=== PATIENT | female | born 1960 | race Caucasian/White ===

== ENCOUNTER 2018-12-09 08:57 | Outpatient (CLI) | payer BC ==
--- NOTE | 2018-12-10 09:22 | Mammography Report ---
Reason: SCREENING MAMMO Procedure Date: 12/09/2018 Accession Number: [id number] / [id number] Procedure: JOHN - Screening Mammo w/William CPT Code: FULL RESULT: EXAM: Screening Mammo w/William DATE: 12/09/2018 9:26 AM CLINICAL HISTORY: Screening encounter. History of early menses and nulliparity. TECHNIQUE: (B) - Bilateral CC and MLO views were obtained. COMPARISON: 06/30/2017 through 04/05/2009. PARENCHYMAL PATTERN: (A) - The breast(s) demonstrate(s) scattered fibroglandular densities. FINDINGS: There are no suspicious masses, calcifications, or areas of distortion. IMPRESSION: Negative examination. BI-RADS category 1. RECOMMENDATION: (ANNUAL) - Recommend routine annual screening mammography. BI-RADS CATEGORY: (1) - Negative. STANDARD QUALIFYING STATEMENTS: 1. This examination was not reviewed with the aid of Computer-Aided Detection (CAD). 2. A negative or benign imaging report should not preclude biopsy if clinically suspicious findings are present. 3. Dense breasts may obscure an underlying neoplasm. 4. This examination was reviewed with the aid of 3D breast imaging (tomosynthesis).
== END 2018-12-09 08:58 | disposition home or self-care (01) ==
LOC: DI 08:57
DX: Z12.31 Encounter for screening mammogram for malignant neoplasm of breast (principal)
CPT/HCPCS: 77063; 77067

== ENCOUNTER 2021-09-24 12:23 | Outpatient (CLI) | payer BC ==
--- NOTE | 2021-09-25 07:23 | Mammography Report ---
BILATERAL DIGITAL SCREENING MAMMOGRAM 3D/2D: 09/24/2021 CLINICAL: Routine screening. Comparison is made to exams dated: 12/09/2018 mammogram, 06/30/2017 mammogram, and 12/06/2014 mammogra m - [facility]. There are scattered fibroglandular elements in both breasts. No significant masses, calcifications, or other findings are seen in either breast. There has been no significant interval change. IMPRESSION: NEGATIVE There is no mammographic evidence of malignancy. A 1 year screening mammogram is recommended. This exam was interpreted at Station ID: [id number]. NOTE: For mammograms, a report in lay terms will be sent to the patient. Approximately 15% of breast malignancies will not be visualized mammographically. In the management of a palpable breast mass, a negative mammogram must not discourage biopsy of a clinically suspicious lesion. Electronically Signed By: Bean Hassan M.D. aty/penrad:09/24/2021 16:20:40 ACR BI-RADS Category 1: Negative 3341F PARENCHYMAL PATTERN: (A) - The breast(s) demonstrate(s) scattered fibroglandular densities. BI-RADS CATEGORY: (1) - 1 RECOMMENDATION: (ANNUAL) - Recommend routine annual screening mammography. [id number] 1 year screening LATERALITY: (B)
== END 2021-09-24 12:24 | disposition home or self-care (01) ==
LOC: DI.S 12:23
PROVIDERS: ATTEND Obstetrics & Gynecology
DX: Z12.31 Encounter for screening mammogram for malignant neoplasm of breast (principal)

== ENCOUNTER 2021-09-24 12:27 | Outpatient (CLI) | payer BC ==
[2021-09-24 14:55] LABS: HCT - HEMATOCRIT 43.4 % (37.0-47.0); HGB - HEMOGLOBIN 13.9 g/dL (12.0-16.0); MEAN CORPUSCULAR HEMOGLOBIN 30.2 pg (27.0-31.0); MEAN CORPUSCULAR VOLUME 94.1 fL (81.0-99.0); MEAN PLATELET VOLUME 10.2 fL (7.9-10.8); RED BLOOD COUNT 4.61 10^6/uL (4.20-5.40); RED CELL DISTRIBUTION WIDTH 12.4 % (12.0-15.0); WHITE BLOOD COUNT 4.2 x10^3/uL (4.8-10.8)
[2021-09-24 15:37] LABS: ALBUMIN 4.2 g/dL (3.2-5.5); ALBUMIN/GLOBULIN RATIO 1.1 (1.0-2.2); ALKALINE PHOSPHATASE 53 IU/L (42-121); ALT ALANINE AMINOTRANSFERASE 19 IU/L (10-60); AST ASPARTATE AMINOTRANSFERASE 24 IU/L (10-42); BILIRUBIN,TOTAL 0.8 mg/dL (0.2-1.0); BUN - BLOOD UREA NITROGEN 13 mg/dL (6-20); CALCIUM 9.2 mg/dL (8.5-10.3); CARBON DIOXIDE - CO2 26 mmol/L (21-32); CHLORIDE 101 mmol/L (101-111); CHOL/HDL RATIO 3.1 (<4.4); CHOLESTEROL 210 mg/dL; CREATININE 0.7 mg/dL (0.4-1.0); GFR - MDRD 86 (>89); GLUCOSE 89 mg/dL (70-100); HDL CHOLESTEROL 68 mg/dL; LDL CHOLESTEROL,CALCULATED 132 mg/dL; LDL/HDL RATIO 1.9 (<4.4); SODIUM 139 mmol/L (135-145); TOTAL PROTEIN 7.9 g/dL (6.7-8.2); TRIGLYCERIDES 49 mg/dL; VLDL CHOLESTEROL 10 mg/dL
[2021-09-24 15:49] LABS: THYROID STIMULATING HORMONE 1.5 uIU/mL (0.34-5.60)
[2021-09-24 15:51] LABS: FREE T4 (FREE THYROXINE) 0.95 ng/dL (0.58-1.64)
[2021-09-24 16:37] LABS: ESTIMATED AVERAGE GLUCOSE 105 mg/dL (70-100); HEMOGLOBIN A1c% 5.3 % (4.27-6.07)
== END 2021-09-24 12:28 | disposition home or self-care (01) ==
LOC: LAB.S 12:27
PROVIDERS: ATTEND Obstetrics & Gynecology
DX: Z00.00 Encounter for general adult medical examination without abnormal findings (principal); Z13.1 Encounter for screening for diabetes mellitus; Z13.29 Encounter for screening for other suspected endocrine disorder; Z13.220 Encounter for screening for lipoid disorders; Z13.21 Encounter for screening for nutritional disorder
CPT/HCPCS: 36415; 80053; 80061; 82306; 83036; 83721; 84439; 84443; 85027

== ENCOUNTER 2022-11-07 09:10 | Outpatient (CLI) | payer BC ==
--- NOTE | 2022-11-08 10:35 | Mammography Report ---
BILATERAL DIGITAL SCREENING MAMMOGRAM 3D/2D: 11/07/2022 CLINICAL: Routine screening. Comparison is made to exams dated: 09/24/2021 mammogram, 12/09/2018 mammogram, and 06/30/2017 mammogram - [facility]. Both breasts are almost entirely fatty (category a/<25% glandular tissue). No significant masses, calcifications, or other findings are seen in either breast. There has been no significant interval change. IMPRESSION: NEGATIVE There is no mammographic evidence of malignancy. A 1 year screening mammogram is recommended. Based on the Tyrer Cuzick model (a risk assessment model) the patients lifetime risk is 5.7% and her 10 year risk is 2.3%. According to the ACR, ACS, and NCCN guidelines, an annual breast MRI exam nikolay g with mammogram is recommended if the patients lifetime risk is 20% or greater. This exam was interpreted at Station ID: [id number]. NOTE: For mammograms, a report in lay terms will be sent to the patient. Approximately 15% of breast malignancies will not be visualized mammographically. In the management of a palpable breast mass, a negative mammogram must not discourage biopsy of a clinically suspicious lesion. Electronically Signed By: Yara marrero/michael:11/07/2022 13:58:10 letter sent: No_Letter ACR BI-RADS Category 1: Negative 3341F PARENCHYMAL PATTERN: (F) - The breast(s) demonstrate(s) diffuse fatty replacement. BI-RADS CATEGORY: (1) - 1 Mammogram [id number] 1 year screening LATERALITY: (B)
== END 2022-11-07 09:11 | disposition home or self-care (01) ==
LOC: DI.S 09:10
PROVIDERS: ATTEND Nurse Practitioner
DX: Z12.31 Encounter for screening mammogram for malignant neoplasm of breast (principal)

== ENCOUNTER 2022-11-08 21:11 | Outpatient (CLI) | payer BC ==
--- NOTE | 2022-11-09 01:07 | Ultrasound Report ---
PROCEDURE: Pelvic w/Transvaginal INDICATIONS: HIST OVARIAN CYST TECHNIQUE: Real-time scanning was performed of the pelvic organs, with image documentation. Additional endovagi nal scanning was necessary due to incomplete visualization of the adnexal and endometrial structures by transabdominal scanning. COMPARISON: 09/04/2013 FINDINGS: Uterus: 6.7 x 4.4 x 6.3 cm. Endometrium is at the upper limit of normal measuring 5 mm. Multiple fibr oids, the largest on the left subserosal region with calcifications measuring 4.5 x 3.2 x 5.3 cm, pre viously 4.3 x 3.7 x 3.4 cm. The largest on the right lateral subserosal region measures 3.2 x 2.8 x 3 .2 cm, previously 4 x 3.6 x 3 cm. Ovaries: Complex cyst in the right ovary with incomplete septations measure 3.4 x 2.5 x 3.8 cm, previ ously 2.7 x 2.4 x 2.3 cm. Ovaries are otherwise not well seen. Other: No pathologic free fluid. IMPRESSION: Limited exam due to patient body habitus and increased bowel gas. Fibroid uterus. The left lateral calcified subserosal fibroid may be slightly increased, but difficul t to compare due to shadowing calcifications. Right ovarian O RADS 2 cyst measuring 3.4 x 3.8 x 2.5 cm is slightly enlarged compared to 2013 panda g. Consider another follow-up in 6-12 months. Reviewed by: Galdino Dumont MD on 11/09/2022 1:05 AM PDT Approved by: Galdino Dumont MD on 11/09/2022 1:05 AM PDT Station ID: [id number]
--- NOTE | 2022-11-09 01:12 | Ultrasound Report ---
PROCEDURE: Abdomen Limited INDICATIONS: HERNIA TECHNIQUE: Real-time focused scanning was performed of the abdomen, with image documentation. COMPARISONS: None. FINDINGS AND IMPRESSION: Periumbilical fat-containing nonreducible ventral abdominal hernia, with neck measuring 1.7-2.1 cm an d herniated portion measuring 5.4 x 2.9 cm. Reviewed by: Galdino Dumont MD on 11/09/2022 1:10 AM PDT Approved by: Galdino Dumont MD on 11/09/2022 1:10 AM PDT Station ID: [id number]
== END 2022-11-08 21:12 | disposition home or self-care (01) ==
LOC: DI 21:11
PROVIDERS: ATTEND Nurse Practitioner
DX: D25.2 Subserosal leiomyoma of uterus (principal); N83.201 Unspecified ovarian cyst, right side; K43.9 Ventral hernia without obstruction or gangrene

== ENCOUNTER 2022-11-11 11:59 | Outpatient (CLI) | payer BC | END 2022-11-11 12:00 | disposition home or self-care (01) | LOC: LAB.S 11:59 | PROVIDERS: ATTEND Nurse Practitioner | DX: Z87.42 Personal history of other diseases of the female genital tract (principal) | CPT/HCPCS: 36415; 86304 ==

== ENCOUNTER 2023-05-26 10:46 | Outpatient (CLI) | payer BC ==
[2023-05-26 14:57] LABS: BASOPHILS # (AUTO) 0.1 10^3/uL (0.0-0.1); BASOPHILS % (AUTO) 0.9 %; EOSINOPHILS # (AUTO) 0.3 10^3/uL (0.0-0.7); EOSINOPHILS % (AUTO) 4.9 %; HCT - HEMATOCRIT 45.2 % (37.0-47.0); HGB - HEMOGLOBIN 13.9 g/dL (12.0-16.0); LYMPHOCYTES # (AUTO) 1.6 10^3/uL (1.5-3.5); LYMPHOCYTES % (AUTO) 28.6 %; MEAN CORPUSCULAR HEMOGLOBIN 29.8 pg (27.0-31.0); MEAN CORPUSCULAR HGB CONC 30.8 g/dL (32.0-36.0); MEAN CORPUSCULAR VOLUME 96.8 fL (81.0-99.0); MEAN PLATELET VOLUME 10.2 fL (7.9-10.8); MONOCYTES # (AUTO) 0.6 10^3/uL (0.0-1.0); MONOCYTES % (AUTO) 11.1 %; NEUTROPHILS % (AUTO) 54.3 %; PLT - PLATELET COUNT 315 10^3/uL (130-450); RED BLOOD COUNT 4.67 10^6/uL (4.20-5.40); WHITE BLOOD COUNT 5.5 x10^3/uL (4.8-10.8)
[2023-05-26 15:23] LABS: HCG UR QUAL NEGATIVE
== END 2023-05-26 10:47 | disposition home or self-care (01) ==
LOC: LAB.S 10:46
PROVIDERS: ATTEND Obstetrics & Gynecology
DX: Z01.812 Encounter for preprocedural laboratory examination (principal); N83.209 Unspecified ovarian cyst, unspecified side
CPT/HCPCS: 36415; 81025; 85025

== ENCOUNTER 2023-06-05 06:10 | Day surgery (SDC) | payer BC ==
[2023-06-05] MEDS ORDERED: LACTATED RINGERS 1,000 ML IV ONE ×3 (06:47→09:16)
[2023-06-05] MEDS ORDERED: LIDOCAINE 1%-EPI 1:100000 20 ML MDV ONE (07:36)
[2023-06-05] MEDS ORDERED: SILVER NITRATE APPLICATOR TOP ONE (07:36)
[2023-06-05] MEDS ORDERED: MIDAZOLAM 2 MG/2 ML VIAL ONE (07:42)
[2023-06-05] MEDS ORDERED: LIDOCAINE-PF 2% 10 ML AMP SUBQ ONE (07:42)
[2023-06-05] MEDS ORDERED: fentaNYL 100 MCG/2 ML VIAL ONE (07:42)
[2023-06-05] MEDS ORDERED: PROPOFOL 200 MG/20 ML VIAL IVP ONE (07:42)
[2023-06-05] MEDS ORDERED: ROCURONIUM 50 MG/5 ML VIAL ONE (07:43)
[2023-06-05] MEDS ORDERED: DEXAMETHASONE 4 MG/ML VIAL ONE (07:43)
[2023-06-05] MEDS ORDERED: KETOROLAC 30 MG/ML VIAL ONE (07:43)
[2023-06-05] MEDS ORDERED: ONDANSETRON 4 MG/2 ML VIAL ONE (07:43)
[2023-06-05] MEDS ORDERED: NALOXONE 0.4 MG/ML VIAL IVP PRN (07:45)
[2023-06-05] MEDS ORDERED: ATROPINE ABBOJECT 1 MG/10 ML SYRINGE IVP PRN (07:45)
[2023-06-05] MEDS ORDERED: ONDANSETRON 4 MG/2 ML VIAL IVP PRN (07:45)
[2023-06-05] MEDS ORDERED: ePHEDrine 50 MG/ML VIAL IVP PRN (07:45)
[2023-06-05] MEDS ORDERED: MORPHINE 2 MG/ML CARPUJECT IVP PRN (07:45)
[2023-06-05] MEDS ORDERED: METOCLOPRAMIDE 10 MG/2 ML VIAL IVP PRN (07:45)
[2023-06-05] MEDS ORDERED: fentaNYL 100 MCG/2 ML VIAL IVP PRN (07:45)
[2023-06-05] MEDS ORDERED: HYDROmorphone 0.5 MG/0.5 ML SYRINGE IVP PRN (07:45)
--- NOTE | 2023-06-05 07:45 | ANESTHESIA ---
Pre-Anesthesia VS, & Labs - Diagnosis ovarian cyst - Procedure lap oophorectomy Vital Signs: Temp Pulse Resp BP Pulse Ox O2 Flow Rate 36.6 C 67 18 111/72 99 06/05/23 06:30 06/05/23 06:30 06/05/23 06:30 06/05/23 06:30 06/05/23 06:30 Height: 5 ft 6 in Weight (kg): 80.2 kg Body Mass Index: 28.5 BMI Classification: Overweight - NPO >8 hours - Is Patient ?: No Home Medications and Allergies Home Medications: Ambulatory Orders Fluticasone [Flonase] 1 sprays REGINA BID 05/15/23 Omeprazole 20 mg PO BID 05/15/23 Clobetasol 0.05% Oint [Temovate 0.05% Oint] 1 applic TOP ONCE PRN 01/29/23 Ibuprofen [Advil] 200 mg PO DAILY PRN 01/29/23 Progesterone, Micronized [Prometrium] 100 mg PO DAILY 01/29/23 estradioL [Estrace] 1 mg PO DAILY 01/29/23 Fluticasone [Flonase] 1 sprays REGINA BID 05/15/23 Omeprazole 20 mg PO BID 05/15/23 Allergies/Adverse Reactions: Allergies Allergy/AdvReac Type Severity Reaction Status Date / Time Milk Containing Products Allergy Intermediate psoriasis Verified 06/05/23 06:51 (Dairy) Anes History & Medical History - Anesthetic History Anesthesia Complications: reports: No previous complications Family history of Anesthesia Complications: Denies Family history of Malignant Hyperthermia: Denies - Medical History Cardiovascular: reports: None Pulmonary: reports: None Gastrointestinal: reports: GERD, Hemorrhoids Urinary: reports: None Neuro: reports: None Musculoskeletal: reports: None Endocrine/Autoimmune: reports: None Blood Disorders: reports: None Skin: reports: Psoriasis - Surgical History General: reports: Other Gynecologic: reports: Tubal ligation, Other Exam General: Alert, Oriented x3, Cooperative Dental: WNL Mouth Openin Fingerbreadth Neck Mobility: Normal Mallampati classification: II Thyromental Distance: 4-6 cm Respiratory: Lungs clear Cardiovascular: Regular rate Plan Anesthesia Type: General Consent for Procedure(s) Verified and Reviewed: Yes Code Status: Attempt Resuscitation ASA classification: 2-Mild systemic disease Is this case an emergency?: No
[2023-06-05] MEDS ORDERED: LACTATED RINGERS 1,000 ML IV SCH (08:00)
[2023-06-05] MEDS ORDERED: ACETAMINOPHEN 1,000 MG/100 ML 1,000 MG/100 ML BAG IV ONE (08:21)
[2023-06-05] MEDS ORDERED: LIDOCAINE 1%-EPI 1:100000 20 ML MDV SUBQ ONE ×2 (08:55)
[2023-06-05] MEDS ORDERED: SUGAMMADEX 200 MG/2 ML VIAL IVP ONE (09:14)
[2023-06-05] MEDS ORDERED: HYDROmorphone 0.5 MG/0.5 ML SYRINGE ONE (09:37)
--- NOTE | 2023-06-05 09:54 | OPERATIVE REPORT ---
Operative Report - General Procedure Date: 06/05/23 Planned Procedure: laparoscopic BSO Pre-Op Diagnosis: persistent cysts in post menopausal woman Procedure Performed: laparoscopic BSO Post Op Diagnosis: same as above - Procedure Note Primary Surgeon: Anne Secondary Surgeon: John Anesthesia Provider: LIN Anesthesia Technique: General ET tube Pathology: bilateral tubes (s/p tubal) and ovaries, Right is tagged. R is larger. R with edema in broad ligament IV Fluids (mL): 1,000 Estimated Blood Loss (mL): 2 Urine Output (mL): 0 Indications: persistent ovarian cysts in post-menopausal woman Findings: fibroid uterus, retroverted. enlarged R uterus edema in broad ligament small L tube burn pardo c/w history of endometriosis small adhesion to abdominal wall - thin and lysed small white nodules on bowel - diverticuli ? Complications: none - Other Other Information/Narrative: OPERATIVE NOTE Pre-operative diagnosis: 1. persistent ovarian cysts in post menopausal woman Procedure: diagnostic laparoscopy, BSO Post-operative diagnosis: PERI Surgeon: Anne Sap Fico Business Analyst: John Anesthesia: General Findings: thin adhesion of omentum to anterior abdominal wall, lysed bilobed / fibroid uterus - retroverted normal appearing R ovary - though larger than L ovary small paratubal cysts on R side tubes s/p BTL edema in R broad ligament. Complications: None apparent EBL: minimal UOP: none - voided prior to entry into the OR Specimen: none Disposition: Stable, to PACU Procedure in detail: After risks benefits and alternatives, as well as indication for procedure and anticipated post-operative recovery course was discussed with the patient informed consent was obtained and patient was taken to the operating theater where general anesthesia was administered without difficulty. Pt was prepared and draped in normal sterile fashion. Placed supine. Prior to skin incision surgical time out was performed, all persons in the operating theater participated in time out and agreed. Dr. Cortez general surgeon was present for insertion of initial trocar - as he recently placed a mesh hernia repair in this woman. He created an 11mm incision in the R upper quadrant, and inserted veres - and then inserted the trocar without difficulty. We inserted the camera. Peritoneum insufflated. Pelvis inspected, no notable adhesions in the pelvis, minor adhesions as noted above. 5mm port placed in the right and left lower quadrants. Atraumatic grasper uti lized to reveal aforementioned findings. Ligasure used to remove tubes and ovaries in standard fashion, far from ureter. Pelvis inspected in detail, small site of bleeding on R cornua of uterus from retraction, hemostasis achieved with ligasure. Abdomen inspected, normal liver, normal gallbladder. Attempted removal of specimen with endocatch bag through 11mm port site -- and the bag broke, so the R ovary was pulled through incision with efe, and the L tube and ovary were removed through the 5mm trocar. Reinspected pelvis, all hemostatic. Insufflation released from abdomen, ports removed. Skin closed with 4.0 monocryl. Skin hemostatic, local anesthesia placed around incisions incisions dressed with bandaids x3. Pt tolerated procedure well. All counts correct. Pt to PACU in stable condition. Dr. Lopez care, expertise, retraction, and assistance was needed throughout the case for the safety and wellbeing of the patient. Dr. Cortez expertise was appreciated for the initial insertion of trocar to avoid involvement of mesh / complication from prior surgery, in order to achieve maxiumum safety for the patient.
[2023-06-05] MEDS ORDERED: MORPHINE 10 MG/ML VIAL IVP ONE (10:10)
[2023-06-05 10:52] VITALS: BP 109/63; O2SAT 99
--- NOTE | 2023-06-05 16:28 | ANESTHESIA POST OP EVALUATION ---
Anesthesia Post Eval - Post Anesthesia Eval Vitals: Last Vital Signs Temp 36.8 C 06/05/23 10:45 Pulse 70 06/05/23 10:45 Resp 16 06/05/23 10:45 BP 109/63 06/05/23 10:45 Pulse Ox 99 06/05/23 10:45 O2 Flow Rate CV Function Including HR & BP: Stable Pain Control: Satisfactory Nausea & Vomiting: Negative Mental Status: Baseline Respiratory Status: Airway Patent Hydration Status: Satisfactory Anesthesia Complications: None
== END 2023-06-05 06:11 | disposition home or self-care (01) ==
LOC: SDS 06:10
PROVIDERS: ATTEND Obstetrics & Gynecology
PROC: 0UT78ZZ Resection of Bilateral Fallopian Tubes, Via Natural or Artificial Opening Endoscopic (ICD-10-PCS; 2023-06-05)
PROC: 0UT28ZZ Resection of Bilateral Ovaries, Via Natural or Artificial Opening Endoscopic (ICD-10-PCS; principal; 2023-06-05 07:30)
DX: N83.209 Unspecified ovarian cyst, unspecified side (principal); D25.9 Leiomyoma of uterus, unspecified; Z78.0 Asymptomatic menopausal state
CPT/HCPCS: 58661; J0131; J1170; J7120

== ENCOUNTER 2023-10-02 08:42 | Outpatient (CLI) | payer BC ==
[2023-10-02 16:13] LABS: ALBUMIN 3.7 g/dL (3.2-5.5); ALBUMIN/GLOBULIN RATIO 1.2 (1.0-2.2); BILIRUBIN,TOTAL 0.6 mg/dL (0.2-1.0); CALCIUM 9.2 mg/dL (8.5-10.3); CREATININE 0.6 mg/dL (0.6-1.3); POTASSIUM 3.9 mmol/L (3.5-4.5); TOTAL PROTEIN 6.8 g/dL (6.4-8.9)
== END 2023-10-02 08:43 | disposition home or self-care (01) ==
LOC: LAB.S 08:42
PROVIDERS: ATTEND Naturopath
DX: M79.10 Myalgia, unspecified site (principal); L40.0 Psoriasis vulgaris; N95.8 Other specified menopausal and perimenopausal disorders
CPT/HCPCS: 36415; 80053; 82670

== ENCOUNTER 2023-11-03 09:50 | Outpatient (CLI) | payer BC ==
[2023-11-03 14:50] LABS: ALBUMIN 4.1 g/dL (3.2-5.5); ALKALINE PHOSPHATASE 70 IU/L (42-121); ALT ALANINE AMINOTRANSFERASE 31 IU/L (10-60); AST ASPARTATE AMINOTRANSFERASE 30 IU/L (10-42); BILIRUBIN,DIRECT < 0.10 mg/dL (0.03-0.18); BILIRUBIN,TOTAL 0.6 mg/dL (0.2-1.0); TOTAL PROTEIN 6.7 g/dL (6.4-8.9)
== END 2023-11-03 09:51 | disposition home or self-care (01) ==
LOC: LAB.S 09:50
PROVIDERS: ATTEND Naturopath
DX: R10.10 Upper abdominal pain, unspecified (principal); R79.89 Other specified abnormal findings of blood chemistry
CPT/HCPCS: 36415; 80076; 81599

== ENCOUNTER 2023-11-21 09:54 | Outpatient (CLI) | payer BC | END 2023-11-21 09:55 | disposition home or self-care (01) | LOC: LAB.S 09:54 | PROVIDERS: ATTEND Naturopath | DX: R10.10 Upper abdominal pain, unspecified (principal); R79.89 Other specified abnormal findings of blood chemistry | CPT/HCPCS: 81599 ==